=== PATIENT | male | born 2000 | race Caucasian/White ===

== ENCOUNTER 2024-02-27 20:33 | Emergency (ER) | payer OTHER ==
[~2024-02-27] VITALS: Ht 172.7 cm; Wt 121.6 kg
[2024-02-27 20:36] VITALS: BP 128/84; PULSE 131; RESP 20; TEMP 97.8; O2SAT 98
[2024-02-27] MEDS: NACL 0.9% 1,000 ML IV ONE (21:02)
[2024-02-27] MEDS: KETOROLAC 30 MG/ML VIAL IVP ONE (21:03)
[2024-02-27] MEDS ORDERED: IBUP-2213 PO (21:31)
[2024-02-27] MEDS ORDERED: DICL20GE TP (21:31)
[2024-02-27 22:00] VITALS: BP 125/70; PULSE 114; RESP 20; TEMP 98; O2SAT 100
== END 2024-02-27 22:00 | disposition home or self-care (01) ==
LOC: MED 20:33
DX: S33.5XXA Sprain of ligaments of lumbar spine, initial encounter (principal); M54.2 Cervicalgia; Z79.1 Long term (current) use of non-steroidal anti-inflammatories (NSAID); Z79.899 Other long term (current) drug therapy; X58.XXXA Exposure to other specified factors, initial encounter; Y93.89 Activity, other specified; Y92.89 Other specified places as the place of occurrence of the external cause; Y99.8 Other external cause status
CPT/HCPCS: 96361; 96374; 99285; J1885; J7030